=== PATIENT | female | born 1985 | race Caucasian/White ===

== ENCOUNTER 2024-08-12 11:07 | Emergency (ER) | payer OTHER, SELFPAY ==
[2024-08-12 11:16] VITALS: BP 165/93; PULSE 67; RESP 17; TEMP 37; O2SAT 100; BMI 24.2
--- NOTE | 2024-08-12 18:28 | ED.HA ---
HPI - Headache General Chief Complaint: Headache Stated Complaint: Headache Mode of arrival: Ambulatory Related Data Home Medications Medication Instructions Recorded Confirmed ustekinumab 45 mg/0.5 mL mg SUBCUT 08/12/24 subcutaneous syringe (Stelara) Allergies Allergy/AdvReac Type Severity Reaction Status Date / Time meperidine [From Demerol] Allergy Anaphylaxis Verified 08/12/24 11:19 Patient History Social History Smoking Status: Never smoker Smoking Status: Never smoker Exam Initial Vital Signs Initial Vital Signs: Vital Signs Temperature 98.6 F 08/12/24 11:16 Pulse Rate 67 08/12/24 11:16 Respiratory Rate 17 08/12/24 11:16 Blood Pressure 165/93 H 08/12/24 11:16 Pulse Oximetry 100 08/12/24 11:16 Oxygen Delivery Method Room Air 08/12/24 11:16 Course Vital Signs Vital signs: Vital Signs - 8 hr 08/12/24 11:16 Temperature 98.6 F Pulse Rate 67 Respiratory Rate 17 Blood Pressure 165/93 H Pulse Oximetry 100 Oxygen Delivery Method Room Air MDM - Headache Differential Diagnosis Discussed with:: the patient did not see this patient as they left without being seen after triage. Therefore, no chart could be generated,. Discharge Plan Departure Patient Disposition: Left Without Being Seen Clinical Impression: Patient left after triage Prescriptions: No Action Stelara 45 mg/0.5 mL syringe SUBCUT Patient Comments: [NO ORIGINAL SIG]
== END 2024-08-12 11:47 | disposition left against medical advice (07) ==
PROVIDERS: Emergency Provider Emergency Medicine
DX: Z53.21 Procedure and treatment not carried out due to patient leaving prior to being seen by health care provider (principal)
CPT/HCPCS: 99281